=== PATIENT | female | born 1990 | race Caucasian/White ===

== ENCOUNTER → 2019-12-03 | Outpatient (REF) | payer MEDICAID | LOC: M LAB LCGH 12:39 | PROVIDERS: ATTEND Family Medicine | DX: Z12.4 Encounter for screening for malignant neoplasm of cervix (principal) ==

== ENCOUNTER 2024-06-20 08:25 | Day surgery (SDC) | payer MEDICAID ==
[~2024-06-20] VITALS: Ht 165.1 cm; Wt 96.3 kg
[2024-06-20] MEDS ORDERED: LR 1,000 ML IV SCH ×2 (09:10→11:35)
[2024-06-20] MEDS ORDERED: propofoL 200 MG/20 ML VIAL As Ordered ONE (11:07)
[2024-06-20] MEDS ORDERED: ACETAMINOPHEN 1000MG 100ML IV BAG As Ordered ONE (11:07)
[2024-06-20] MEDS ORDERED: ONDANSETRON 4MG 2ML VIAL As Ordered ONE (11:07)
[2024-06-20] MEDS ORDERED: fentaNYL 100 MCG/2 ML INJECTION As Ordered ONE (11:07)
[2024-06-20] MEDS ORDERED: MIDAZOLAM INJ 2MG/2ML VIAL As Ordered ONE (11:07)
[2024-06-20] MEDS ORDERED: HYDROMORPHONE HCL 0.5 MG/ 0.5 ML SYRINGE IV PRN (11:35)
[2024-06-20] MEDS ORDERED: ONDANSETRON 4MG 2ML VIAL IV PRN (11:35)
[2024-06-20] MEDS ORDERED: oxyCODONE 5MG TAB PO PRN (11:35)
[2024-06-20] MEDS ORDERED: fentaNYL 100 MCG/2 ML INJECTION IV PRN (11:35)
[2024-06-20 12:05] VITALS: BP 139/73; TEMP 97.5; O2SAT 98
== END 2024-06-20 12:34 | disposition home or self-care (01) ==
LOC: M SDC 08:25
PROVIDERS: ATTEND Orthopaedic Surgery Hand Surgery
DX: G56.01 Carpal tunnel syndrome, right upper limb (principal); F79 Unspecified intellectual disabilities; K58.8 Other irritable bowel syndrome
CPT/HCPCS: 29848; 81025; J0131; J0665; J1100; J2250; J2405; J3010